=== PATIENT | female | born 1980 | race Two or more races ===

== ENCOUNTER 2021-10-19 09:53 | Emergency (ER) | payer OTHER ==
[~2021-10-19] VITALS: Ht 152.4 cm; Wt 115.0 kg
[2021-10-19 11:37] VITALS: BP 103/80
[2021-10-19] MEDS ORDERED: ONDANSETRON ODT 4 MG TAB PO ONE (12:30)
== END 2021-10-19 12:58 | disposition home or self-care (01) ==
LOC: ER 09:53
DX: U07.1 COVID-19 (principal); J06.9 Acute upper respiratory infection, unspecified; B97.89 Other viral agents as the cause of diseases classified elsewhere; E11.9 Type 2 diabetes mellitus without complications
CPT/HCPCS: 36415; 87426; 87804; 99283; Q0162

== ENCOUNTER 2023-08-07 18:21 | Emergency (ER) | payer OTHER ==
[~2023-08-07] VITALS: Ht 152.4 cm; Wt 109.3 kg
[2023-08-07] MEDS ORDERED: HYDR-4902 PO (21:37)
[2023-08-07] MEDS ORDERED: IBUP-1455 PO (21:37)
[2023-08-07] MEDS: HYDROcodone-ACET 5/325MG TAB PO ONE (21:56)
[2023-08-07] MEDS: KETOROLAC TROMETH 60MG/2ML VIAL IM ONE (22:34)
[2023-08-07 22:47] VITALS: BP 138/79; PULSE 89; RESP 19; TEMP 98.6; O2SAT 96
== END 2023-08-07 23:17 | disposition home or self-care (01) ==
LOC: ER 18:21
DX: S52.571A Other intraarticular fracture of lower end of right radius, initial encounter for closed fracture (principal); E11.9 Type 2 diabetes mellitus without complications; W18.09XA Striking against other object with subsequent fall, initial encounter; Y93.01 Activity, walking, marching and hiking; Y92.89 Other specified places as the place of occurrence of the external cause; Y99.8 Other external cause status
CPT/HCPCS: 29125; 73110; 96372; 99283; J1885